=== PATIENT | female | born 1980 | race Caucasian/White ===

== ENCOUNTER 2016-07-11 13:25 | Emergency (ER) | payer MEDICAID, OTHER ==
[~2016-07-11] VITALS: Ht 167.6 cm; Wt 81.6 kg
--- NOTE | 2016-07-11 15:37 | NUR ---
A/O X 4, VSS, NAD NOTED. Patient discharged home in stable conditon. Written and verbal after care instructions given. Patient verbalizes understanding of instructions.
[2016-07-11 15:38] VITALS: BP 114/73
== END 2016-07-11 15:39 | disposition home or self-care (01) ==
LOC: ER 13:32
DX: J02.9 Acute pharyngitis, unspecified (principal); K21.9 Gastro-esophageal reflux disease without esophagitis; Z88.1 Allergy status to other antibiotic agents
CPT/HCPCS: 36415; 86403; 99283; A4663

== ENCOUNTER 2016-11-08 18:45 | Emergency (ER) | payer MEDICAID ==
[~2016-11-08] VITALS: Ht 165.1 cm; Wt 81.6 kg
[2016-11-08] MEDS ORDERED: AMOXICILLIN-CLAVUL 875-125MG TABLET PO ONE (22:15)
[2016-11-08] MEDS ORDERED: PIPERACILLIN SODIUM/TAZOBACTAM 3.375 G in IV DEXTROSE 5% 50 ML IV ONE (22:45)
[2016-11-08] MEDS ORDERED: KETOROLAC TROMETHAMINE 30 MG INJ IVP ONE (22:45)
[2016-11-08] MEDS ORDERED: LIDOCAINE HCL 1% 20 ML VIAL IJ ONE (22:45)
[2016-11-08] MEDS ORDERED: AMOXICILLIN-CLAVUL 875-125MG TABLET ONE (22:46)
[2016-11-08] MEDS ORDERED: LIDOCAINE HCL 1% 20 ML VIAL ONE (22:49)
[2016-11-08] MEDS ORDERED: PIPERACILLIN/TAZOBACTAM/D5W 50 ML IV ONE (23:09)
[2016-11-08] MEDS ORDERED: KETOROLAC TROMETHAMINE 30 MG INJ ONE (23:09)
[2016-11-08 23:15] LABS: BASOPHILS # (AUTO) 0.1 K/uL (0.0-8.0); BASOPHILS % (AUTO) 0.6 % (0.0-2.0); EOSINOPHILS # (AUTO) 0.2 K/uL (0.0-0.7); HEMATOCRIT 41.5 % (37-47); HEMOGLOBIN 13.8 G/DL (12.0-16.0); LYMPHOCYTES # (AUTO) 3.1 K/UL (0.8-4.8); LYMPHOCYTES % (AUTO) 26.9 % (20.5-51.5); MEAN CORPUSCULAR HGB CONC 33 g/dL (32.0-37.0); MEAN CORPUSCULAR VOLUME 84.6 FL (81.0-99.0); MONOCYTES # (AUTO) 0.4 K/UL (0.1-1.30); MONOCYTES % (AUTO) 3.6 % (0.0-11.0); NEUTROPHILS # (AUTO) 7.6 K/UL (1.8-8.9); NEUTROPHILS % (AUTO) 66.9 % (38.5-71.5); PLATELET COUNT (AUTO) 307 K/UL (150-450); RED BLOOD CELL COUNT(AUTO) 4.91 MIL/UL (4.2-5.4); WHITE BLOOD COUNT (AUTO) 11.4 K/UL (4.0-11.2)
[2016-11-08 23:19] LABS: BILIRUBIN,DIRECT 0.1 mg/dL (0.0-0.2); BILIRUBIN,TOTAL 0.3 mg/dL (0.2-1.0); CREATININE 0.6 mg/dL (0.6-1.3); POTASSIUM 3.2 mmol/L (3.5-5.1)
--- NOTE | 2016-11-09 00:10 | NUR ---
Patient discharged to home in stable conditon. Written and verbal after care instructions given. Patient verbalizes understanding of instructions.
== END 2016-11-09 00:11 | disposition home or self-care (01) ==
LOC: ER 18:45
DX: M65.841 Other synovitis and tenosynovitis, right hand (principal); K21.9 Gastro-esophageal reflux disease without esophagitis; Z88.1 Allergy status to other antibiotic agents
CPT/HCPCS: 36415; 83605; 85025; 87040; A4663; J1885; J2543; J3490

== ENCOUNTER 2017-09-22 22:25 | Inpatient (IN) | payer MEDICAID, OTHER ==
[~2017-09-22] VITALS: Ht 167.6 cm; Wt 86.2 kg
--- NOTE | 2017-09-22 22:40 | NUR ---
PATIENT WALKED INTO ER C/O SORETHROAT,DRY COUGH WITH PAIN ON RIBCAGE AREA RADIATING TO BCK X5 DAYS. HERE FOR WORSENING PAIN
--- NOTE | 2017-09-22 22:46 | NUR ---
DR CHEEMA INTO [facility] PATIENT
[2017-09-22] MEDS ORDERED: ALBUTEROL SULFATE 2.5 MG/3 ML NEBU NEB ONE (23:49)
[2017-09-23] MEDS ORDERED: CEFTRIAXONE 1 G in IV DEXTROSE 5% 50 ML IV ONE ×2
[2017-09-23] MEDS ORDERED: IV NS 1000 ML 1,000 ML IV ONE
[2017-09-23] MEDS ORDERED: methylPREDNISolone SOD SUCC 125 MG/2 ML VIAL IV ONE
[2017-09-23] MEDS ORDERED: IPRATROPIUM BROMIDE 0.5 MG/2.5 ML NEBU NEB ONE
[2017-09-23] MEDS ORDERED: CEFTRIAXONE 1 G VIAL ONE (00:08)
[2017-09-23] MEDS ORDERED: methylPREDNISolone SOD SUCC 125 MG/2 ML VIAL ONE (00:08)
[2017-09-23 00:14] LABS: ABG BASE EXCESS 2.4 mmol/L; ABG HCO3 25.3 mmol/L; ABG PCO2 33.8 mmHg (35.0-45.0); ABG PH 7.492 (7.350-7.450); ABG PO2 80.2 mmHg (75.0-100.0); ABG SITE RIGHT BRACHIAL; ABG TOTAL HEMOGLOBIN 13.9 G/dL (12.0-16.0); O2Hb 89.6 % (94.0-97.0); VENT MODE ROOM AIR
[2017-09-23 00:16] LABS: BASOPHILS % (AUTO) 0.5 % (0.0-2.0); EOSINOPHILS # (AUTO) 0.4 K/uL (0.0-0.7); EOSINOPHILS % (AUTO) 4.5 % (0.0-7.0); HEMATOCRIT 38.9 % (31.2-41.9); HEMOGLOBIN 13.5 g/dL (10.9-14.3); LYMPHOCYTES # (AUTO) 1.5 K/uL (20.0-40.0); LYMPHOCYTES % (AUTO) 17.5 % (20.5-51.5); MEAN CORPUSCULAR HEMOGLOBIN 29.3 uug (24.7-32.8); MEAN CORPUSCULAR HGB CONC 35 g/dL (32.3-35.6); MEAN CORPUSCULAR VOLUME 84.5 fL (75.5-95.3); MONOCYTES # (AUTO) 0.6 K/uL (2.0-10.0); MONOCYTES % (AUTO) 6.5 % (0.0-11.0); NEUTROPHILS # (AUTO) 6.2 K/uL (1.8-8.9); PLATELET COUNT (AUTO) 225 K/uL (179-408); RED BLOOD CELL COUNT(AUTO) 4.61 MIL/uL (3.63-4.92); WHITE BLOOD COUNT (AUTO) 8.8 K/uL (3.8-11.8)
[2017-09-23] MEDS ORDERED: PANTOPRAZOLE SODIUM IV 40 MG in IV DEXTROSE 5% 100 ML IV ONE (00:16)
[2017-09-23] MEDS ORDERED: ONDANSETRON 4 MG/2 ML VIAL ONE (00:19)
[2017-09-23 00:20] LABS: *BILIRUBIN,URIN NEGATIVE (NEGATIVE); *BLOOD, URINE Trace-lysed (NEGATIVE); *COLOR,URINE YELLOW (YELLOW); *KETONES,URINE NEGATIVE (NEGATIVE); *PROTEIN,URINE NEGATIVE (NEGATIVE); LEUKOCYTE ESTERASE ,URINE NEGATIVE (NEGATIVE); NITRITE, URINE NEGATIVE (NEGATIVE); UGLUCOSE NEGATIVE (NEGATIVE)
--- NOTE | 2017-09-23 00:21 | NUR ---
PATIENT C/O NAUSEA AFTER ABD DRAWN. DR CHEEMA AWARE ORDERS CARRIED OUT
[2017-09-23] MEDS ORDERED: PANTOPRAZOLE SODIUM 40 MG VIAL ONE (00:25)
[2017-09-23 00:27] LABS: CREATININE 0.7 mg/dL (0.6-1.3)
[2017-09-23 00:30] LABS: *CLARITY,URINE HAZY (CLEAR)
[2017-09-23] MEDS ORDERED: ONDANSETRON IV *ER 4 MG/2 ML VIAL IV ONE (00:30)
[2017-09-23 00:31] LABS: BACTERIA,URINE MODERATE /HPF (NONE SEEN); SQUAMOUS EPITHELIAL CELL,UR MODERATE /HPF (NONE SEEN); WBC,URINE 0-3 /HPF (0-3)
[2017-09-23] MEDS ORDERED: ALBUTEROL SULFATE 2.5 MG/3 ML NEBU ONE (00:31)
[2017-09-23] MEDS ORDERED: IPRATROPIUM BROMIDE 0.5 MG/2.5 ML NEBU ONE (00:31)
[2017-09-23 00:39] LABS: POTASSIUM 2.7 mmol/L (3.5-5.1)
[2017-09-23 00:44] LABS: BILIRUBIN,TOTAL 0.5 mg/dL (0.2-1.0); TOTAL PROTEIN, SERUM 8.2 g/dL (6.4-8.2)
--- NOTE | 2017-09-23 00:50 | NUR ---
DR CHEEMA SPOKE WITH JO ANN WILL ASSEMBLING INSPECTOR FOR INPATIENT ADMISSION
[2017-09-23] MEDS ORDERED: ACETAMINOPHEN 325 MG TABLET PO PRN (01:00)
[2017-09-23] MEDS ORDERED: MAGNESIUM HYDROXIDE 30 ML LIQUID UDC PO PRN (01:00)
[2017-09-23] MEDS ORDERED: IPRATROPIUM BROMIDE 0.5 MG/2.5 ML NEBU NEB PRN (01:00)
[2017-09-23] MEDS ORDERED: ALBUTEROL SULFATE 2.5 MG/3 ML NEBU NEB PRN (01:00)
[2017-09-23] MEDS ORDERED: ONDANSETRON 4 MG/2 ML VIAL IV PRN (01:00)
[2017-09-23] MEDS ORDERED: TEMAZEPAM 15 MG CAPSULE PO PRN (01:00)
[2017-09-23] MEDS ORDERED: POTASSIUM CHLORIDE 20 MEQ TAB.PRT.SR PO ONE (01:00)
[2017-09-23] MEDS ORDERED: MORPHINE SULFATE 2 MG/1 ML DISP.SYRIN IV ONE (01:10)
[2017-09-23] MEDS ORDERED: MORPHINE SULFATE 4 MG/1 ML DISP.SYRIN ONE (01:16)
[2017-09-23 02:00] VITALS: BP 106/57
--- NOTE | 2017-09-23 02:24 | NUR ---
TRANSFERED TO 2ND FLOOR TELE
[2017-09-23 02:30] VITALS: BP 106/57
--- NOTE | 2017-09-23 02:43 | NUR ---
NEW ADMIT FROM ER, ADMITTED FOR PNEUMONIA, DENIES CHEST PAIN OR SOB ON ASSESSMENT.SAFETY MEASURES IN PLACE, CALL LIGHT WITHIN PATIENT'S REACH.
[2017-09-23] MEDS: IV NS 1000 ML 1,000 ML IV PRN ×2 (02:58→18:15)
[2017-09-23] MEDS ORDERED: HYDROCODONE/APAP 5-325MG TABLET ONE (03:17)
[2017-09-23] MEDS: HYDROCODONE/APAP 5-325MG TABLET PO PRN ×4 (03:19→21:05)
[2017-09-23 04:00] VITALS: BP 106/55
[2017-09-23] MEDS ORDERED: methylPREDNISolone SOD SUCC 40 MG/ML VIAL IV SCH (06:00)
[2017-09-23] MEDS ORDERED: methylPREDNISolone SOD SUCC 40 MG/ML VIAL ONE (06:13)
--- NOTE | 2017-09-23 06:32 | NUR ---
PATIENT SLEPT ON & OFF THROUGHOUT THE SHIFT. DENIES SOB OR CHEST AT THIS TIME. VSS WNL NO FEVER AT PRESENT. SAFETY MEASURES IN PLACE. NO FURTHER CHANGES IN STATUS
[2017-09-23] MEDS ORDERED: PANTOPRAZOLE SODIUM 40 MG TABLET.DR PO SCH (07:00)
--- NOTE | 2017-09-23 08:00 | NUR ---
AWAKE ALERT COOPERATE WELL NO SOB OR PAIN STILL HAVING DRY COUGH ,CONTINUE IVF INFUSION WELL LAC EAT BREAKFAST MOD AMT RESTING WELL WITH CALL LIGHT IN REACH
[2017-09-23] MEDS ORDERED: CEFTRIAXONE 1 G in IV DEXTROSE 5% 50 ML IV SCH (09:00)
--- NOTE | 2017-09-23 10:00 | NUR ---
IV SITE CHANGE TO RT HAND #22 AND CONTINUE IVPB ORDER
[2017-09-23 10:20] LABS: CREATININE 0.8 mg/dL (0.6-1.3)
[2017-09-23] MEDS: DOXYCYCLINE HYCLATE IV 100 MG in IV DEXTROSE 5% 100 ML IV SCH ×2 (10:48→20:33)
[2017-09-23 11:34] VITALS: BP 105/67
--- NOTE | 2017-09-23 12:00 | NUR ---
C/O IV SITE BURNING WHEN DOXYCYCLINE IVPB GIVEN SLOW DOWN AND ICE PK COMPRESS /COLD
--- NOTE | 2017-09-23 12:30 | NUR ---
NORCO PO PRN GIVEN REQUEST FOR GEN BACK PAIN AND EAT LUNCH WELL CONTINUE IVF
[2017-09-23 15:34] VITALS: BP 115/68
[2017-09-23] MEDS ORDERED: HALOPERIDOL LACTATE 5 MG/1 ML VIAL IM ONE (16:15)
--- NOTE | 2017-09-23 18:00 | NUR ---
HEMODYNAMIC STATUS STABLE PAIN UNDER CONTROL SAFETY MEASURE PROVIDED CALL LIGHT IN REACH
--- NOTE | 2017-09-23 18:30 | NUR ---
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
[2017-09-23 19:00] VITALS: BP 102/55
--- NOTE | 2017-09-23 20:00 | NUR ---
PATIENT IS AWAKE IN BED, AAOX3. DENIES PAIN/SOB/CHEST PAIN OR ACUTE DISTRESS ON ASSESSMENT. SAFETY MEASURES IN PLACE. WILL CONTINUE TO MONITOR PATIENT
--- NOTE | 2017-09-23 22:25 | NUR ---
D/C PATIENT TO [facility].VITAL SIGNS STABLE, PATIENT DENIES SOB OR CHEST PAIN ON DISCHARGE
== END 2017-09-23 23:32 | disposition short-term general hospital (02) | DRG 139 ==
LOC: ER 22:28 → TELE 09-23 00:51 → MED 09-23 09:31
PROVIDERS: ADMIT Nurse Practitioner Acute Care; ATTEND Internal Medicine
DX: J15.9 Unspecified bacterial pneumonia (principal); E87.6 Hypokalemia; J45.909 Unspecified asthma, uncomplicated; Z72.0 Tobacco use; E66.9 Obesity, unspecified; Z68.30 Body mass index [BMI] 30.0-30.9, adult; K21.9 Gastro-esophageal reflux disease without esophagitis; J06.9 Acute upper respiratory infection, unspecified; M54.40 Lumbago with sciatica, unspecified side; G89.29 Other chronic pain; Z88.1 Allergy status to other antibiotic agents; Z86.39 Personal history of other endocrine, nutritional and metabolic disease; Z90.49 Acquired absence of other specified parts of digestive tract
CPT/HCPCS: 36415; 36600; 71045; 83605; 84443; 84703; 85025; 86403; 87040; 87070; 93005; A4663; C9113; J0696; J2270; J2405; J2920; J2930; J3490; J3590; J7030; J7060

== ENCOUNTER 2018-04-13 23:17 | Emergency (ER) | payer MEDICAID ==
[~2018-04-13] VITALS: Ht 167.6 cm; Wt 86.2 kg
--- NOTE | 2018-04-13 23:26 | NUR ---
PT A/OX4, PRESENTS TO THE ER C/O COUGH AND FLU-LIKE SYMPTOMS X 2 WEEKS. PT STATES THE COUGH HAS BEEN WORSENING TODAY, CAUSING MUSCLE SORENESS. VSS. PT DOES NOT APPEAR TO BE IN ANY APPARENT DISTRESS AT THIS TIME. PT DENIES C/P, SOB, N/V/D, DIZZINESS, HEADACHE. ER MD AT BEDSIDE FOR MSE.
--- NOTE | 2018-04-13 23:30 | NUR ---
PT PRESENTS W/ NON-PRODUCTIVE COUGH.
--- NOTE | 2018-04-13 23:36 | NUR ---
[employer] AT BEDSIDE.
[2018-04-13] MEDS ORDERED: ALBUTEROL SULFATE 2.5 MG/3 ML NEBU ONE (23:39)
[2018-04-13] MEDS ORDERED: IPRATROPIUM BROMIDE 0.5 MG/2.5 ML NEBU ONE (23:39)
--- NOTE | 2018-04-13 23:40 | NUR ---
RT AT BEDSIDE.
[2018-04-13] MEDS ORDERED: ALBUTEROL SULFATE 2.5 MG/3 ML NEBU NEB ONE (23:45)
[2018-04-13] MEDS ORDERED: IPRATROPIUM BROMIDE 0.5 MG/2.5 ML NEBU NEB ONE (23:45)
[2018-04-13] MEDS ORDERED: IBUPROFEN 600 MG TABLET ONE (23:52)
[2018-04-14] MEDS ORDERED: predniSONE 20 MG TABLET PO ONE
[2018-04-14] MEDS ORDERED: IBUPROFEN 600 MG TABLET PO ONE
[2018-04-14] MEDS ORDERED: LEVOFLOXACIN 500 MG TABLET PO ONE
[2018-04-14] MEDS ORDERED: LEVOFLOXACIN 500 MG TABLET ONE (00:02)
[2018-04-14] MEDS ORDERED: predniSONE 20 MG TABLET ONE (00:02)
--- NOTE | 2018-04-14 00:05 | NUR ---
STEVEN BISHOP AT BEDSIDE FOR MSE.
--- NOTE | 2018-04-14 00:05 | NUR ---
Patient discharged to home in stable conditon. Written and verbal after care instructions given. Patient verbalizes understanding of instructions. PT D/C W/ PRESCRIPTIONS. ALL BELONGINGS W/ PT. PT SELF-AMBULATED W/O DIFFICULTY.
[2018-04-14 00:06] VITALS: BP 136/78
== END 2018-04-14 00:13 | disposition home or self-care (01) ==
LOC: ER 23:18
DX: J20.9 Acute bronchitis, unspecified (principal); Z71.6 Tobacco abuse counseling; K21.9 Gastro-esophageal reflux disease without esophagitis; F17.290 Nicotine dependence, other tobacco product, uncomplicated; Z88.1 Allergy status to other antibiotic agents
CPT/HCPCS: 71045; 99284; 99406; J7512; A4663; J3590

== ENCOUNTER 2022-12-21 20:22 | Emergency (ER) | payer MEDICAID ==
[~2022-12-21] VITALS: Ht 167.6 cm; Wt 108.9 kg
[2022-12-21 21:52] LABS: BASOPHILS # (AUTO) 0.1 K/UL (0.0-0.2); BASOPHILS % (AUTO) 0.8 % (0.0-2.0); EOSINOPHILS # (AUTO) 0.2 K/uL (0.0-0.7); HEMATOCRIT 37.2 % (31.2-41.9); HEMOGLOBIN 12.2 g/dL (10.9-14.3); LYMPHOCYTES # (AUTO) 1.9 K/uL (0.8-4.8); LYMPHOCYTES % (AUTO) 24.4 % (20.5-51.5); MEAN CORPUSCULAR HEMOGLOBIN 27.6 uug (24.7-32.8); MEAN CORPUSCULAR HGB CONC 33 g/dL (32.3-35.6); MEAN CORPUSCULAR VOLUME 83.9 fL (75.5-95.3); MONOCYTES # (AUTO) 0.4 K/uL (0.1-1.30); MONOCYTES % (AUTO) 5.4 % (0.0-11.0); NEUTROPHILS # (AUTO) 5.3 K/uL (1.8-8.9); NEUTROPHILS % (AUTO) 67.4 % (38.5-71.5); PLATELET COUNT (AUTO) 293 K/uL (179-408); RED BLOOD CELL COUNT(AUTO) 4.43 MIL/uL (3.63-4.92); RED CELL DISTRIBUTION WIDTH 15.3 % (12.3-17.7); WHITE BLOOD COUNT (AUTO) 7.9 K/uL (3.8-11.8)
[2022-12-21 21:58] LABS: DIFFERENTIAL COMMENT 1
[2022-12-21 22:02] LABS: CALCIUM 9.5 mg/dL (8.5-10.1); CARBON DIOXIDE 29 mmol/L (21-32); CHLORIDE 104 mmol/L (98-107); CREATININE 0.9 mg/dL (0.6-1.3); GLUCOSE 136 mg/dL (74-106); SODIUM SERUM 142 mmol/L (136-145); UREA NITROGEN, BLOOD 11 mg/dL (7-18)
[2022-12-21 22:10] LABS: ALANINE AMINOTRANSFERASE 115 U/L (14-59); ALBUMIN 3.4 g/dL (3.4-5.0); ALKALINE PHOSPHATASE 119 U/L (50-136); ASPARTATE AMINOTRANSFERASE 96 U/L (15-37); BILIRUBIN,DIRECT < 0.1 mg/dL (0.0-0.2); BILIRUBIN,TOTAL 0.2 mg/dL (0.2-1.0); TOTAL PROTEIN, SERUM 7.6 g/dL (6.4-8.2)
[2022-12-21] MEDS ORDERED: POTASSIUM CHLORIDE 20 MEQ TAB.PRT.SR PO ONE (22:15)
[2022-12-21] MEDS ORDERED: POTASSIUM CHLORIDE 20 MEQ TAB.PRT.SR ONE (23:04)
[2022-12-21] MEDS ORDERED: KETOROLAC TROMETHAMINE 30 MG INJ IM ONE (23:15)
[2022-12-21] MEDS ORDERED: KETOROLAC TROMETHAMINE 30 MG INJ ONE (23:20)
[2022-12-22 00:44] VITALS: BP 116/69; O2SAT 96
== END 2022-12-22 00:44 | disposition home or self-care (01) ==
LOC: ER 20:28
DX: R07.89 Other chest pain (principal); R10.2 Pelvic and perineal pain; E87.6 Hypokalemia; E03.9 Hypothyroidism, unspecified; K21.9 Gastro-esophageal reflux disease without esophagitis; F17.210 Nicotine dependence, cigarettes, uncomplicated; Z88.1 Allergy status to other antibiotic agents
CPT/HCPCS: 99285; 71045; 80076; 80048; 85025; 84484; 84702; 36415; 93005; 96372; J1885; A4663